=== PATIENT | female | born 1985 | race Caucasian/White ===

== ENCOUNTER 2017-04-14 04:49 | Emergency (ER) | payer SELFPAY ==
[2017-04-14 04:58] VITALS: BP 115/55
[2017-04-14] MEDS ORDERED: Morphine 2 MG/ML Syringe IVPUSH ONE (05:20)
[2017-04-14] MEDS ORDERED: Sodium Chloride 0.9% 1,000 ML IV ONE (05:20)
[2017-04-14] MEDS ORDERED: Ondansetron 4 MG/2 ML SDV IV ONE (05:20)
--- NOTE | 2017-04-14 05:24 | EDM.PDOC ---
ED HPI GENERAL MEDICAL PROBLEM - General Chief Complaint: Flank Pain Stated Complaint: SHARP PAIN IN SIDE [id number] Time Seen by Provider: 04/14/17 05:22 Source of Information: Reports: Patient History Limitations: Reports: No Limitations - History of Present Illness INITIAL COMMENTS - FREE TEXT/NARRATIVE: RUQ pain radiating to back all day worse tonight with nausea & yellow vomit. Right Upper Abdomen Pain Score (Numeric/FACES): 8 - Related Data Allergies Allergy/AdvReac Type Severity Reaction Status Date / Time No Known Allergies Allergy Verified 04/14/17 04:56 Home Meds: Home Meds . 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 ED EXAM, GI/ABD - Physical Exam Exam: See Below Exam Limited By: No Limitations General Appearance: Alert, WD/WN, Mild Distress, Moderate Distress, Other (pain , upset) Ears: Hearing Grossly Normal Throat/Mouth: Normal Voice, No Airway Compromise Head: Atraumatic Neck: Non-Tender, Full Range of Motion Respiratory/Chest: No Respiratory Distress Cardiovascular: Regular Rate, Rhythm GI/Abdominal Exam: Soft, Tender, Other (RUQ-epiG region, BS hyper). No: Distended, Guarding, Rigid, Rebound Neurological: Alert, Oriented, Normal Cognition, Normal Gait, No Motor/Sensory Deficits Psychiatric: Tearful Skin Exam: Warm, Dry, Normal Color Lymphatic: No Adenopathy Course - Vital Signs Last Recorded V/S: Last Vital Signs Temp 36.7 C 04/14/17 04:57 Pulse 83 04/14/17 04:57 Resp 20 04/14/17 04:57 BP 115/55 L 04/14/17 04:57 Pulse Ox 100 04/14/17 04:57 - Orders/Labs/Meds Orders: Active Orders 24 hr Category Date Time Status Sodium Chloride 0.9% [Normal Saline] 1,000 ml Med 04/14/17 05:20 Active IV .BOLUS Medication Orders Sodium Chloride (Normal Saline) 1,000 mls @ 500 mls/hr IV .BOLUS ONE Stop: 04/14/17 07:19 Last Admin: 04/14/17 05:27 Dose: 500 mls/hr Labs: Laboratory Tests 04/14/17 04/14/17 Range/Units 05:28 05:28 WBC 8.2 (5.0-10.0) 10^3/uL RBC 4.27 (4.2-5.4) 10^6/uL Hgb 11.7 L D (12.0-16.0) g/dL Hct 35.7 L (37.0-47.0) % MCV 83.6 D (80-100) fL MCH 27.4 (27.0-34.0) pg MCHC 32.8 L (33.0-35.0) g/dL Plt Count 447 D (150-450) 10^3/uL Neut % (Auto) 53.4 (42.2-75.2) % Lymph % (Auto) 32.2 (20.5-50.1) % [place] % (Auto) 8.9 H (2-8) % Eos % (Auto) 4.9 H (1.0-3.0) % Baso % (Auto) 0.6 (0.0-1.0) % Sodium 140 (135-145) mmol/L Potassium 4.0 (3.6-5.0) mmol/L Chloride 108 (101-111) mmol/L Carbon Dioxide 24.0 (21.0-31.0) mmol/L Anion Gap 12.0 BUN 11 (7-18) mg/dL Creatinine 0.7 (0.6-1.3) mg/dL Est Cr Clr Drug Dosing 90.41 mL/min Estimated GFR (MDRD) > 60 BUN/Creatinine Ratio 15.71 Glucose 104 (74-105) mg/dL Calcium 8.8 (8.4-10.2) mg/dl Total Bilirubin 0.1 L (0.2-1.0) mg/dL AST 18 (10-42) IU/L ALT 20 (10-60) IU/L Alkaline Phosphatase 50 (42-121) IU/L Total Protein 7.1 (6.7-8.2) g/dl Albumin 3.9 (3.2-5.5) g/dl Globulin 3.2 Albumin/Globulin Ratio 1.22 Amylase 59 (28-100) U/L Lipase 39 (22-51) U/L HCG, Qual Negative Meds: Medications Generic Name Dose Route Start Last Admin Trade Name Freq PRN Reason Stop Dose Admin Sodium Chloride 1,000 mls @ 500 mls/hr 04/14/17 05:20 04/14/17 05:27 Normal Saline IV 04/14/17 07:19 500 mls/hr .BOLUS ONE Administration Discontinued Medications Generic Name Dose Route Start Last Admin Trade Name Freq PRN Reason Stop Dose Admin Morphine Sulfate 2 mg 04/14/17 05:20 04/14/17 05:27 Morphine IVPUSH 04/14/17 05:21 2 mg ONETIME ONE Administration Ondansetron HCl 4 mg 04/14/17 05:20 04/14/17 05:27 Zofran IV 04/14/17 05:21 4 mg ONETIME ONE Administration - Re-Assessments/Exams Free Text/Narrative Re-Assessment/Exam: 04/14/17 06:21 results discussed with pt. rec' to go to clinic for US but pt states has no money for clinic. Departure - Departure Time of Disposition: 06:25 Disposition: Home, Self-Care 01 Condition: Good Clinical Impression: Abdominal pain Qualifiers: Abdominal location: right upper quadrant Qualified Code(s): R10.11 - Right upper quadrant pain - Discharge Information Instructions: Cholelithiasis Forms: ED Department Discharge Additional Instructions: 1) see clinic for GALL BLADDER ULTRA SOUND today 2) avoid fatty, fried, spicy, oily foods 3) recheck as needed rx given; bentyl 10mg bid prn cramps x 12 - My Orders Last 24 Hours: My Active Orders 04/14/17 05:20 Sodium Chloride 0.9% [Normal Saline] 1,000 ml IV .BOLUS - Assessment/Plan Last 24 Hours: My Active Orders 04/14/17 05:20 Sodium Chloride 0.9% [Normal Saline] 1,000 ml IV .BOLUS
[2017-04-14 05:57] LABS: CHLORIDE,CL 108 mmol/L (101-111); SODIUM,NA 140 mmol/L (135-145)
== END 2017-04-14 06:35 | disposition home or self-care (01) ==
LOC: DL.ED 04:49
DX: K80.20 Calculus of gallbladder without cholecystitis without obstruction (principal); F17.210 Nicotine dependence, cigarettes, uncomplicated
CPT/HCPCS: 36415; 80053; 82150; 83690; 84703; 85025; 96361; 96374; 96375; 99284; J2270; J2405; J7030